=== PATIENT | male | born 1975 ===

== ENCOUNTER 2024-07-03 14:56 | Outpatient (CLI) | payer SELFPAY ==
--- NOTE | 2024-07-03 15:00 | CT_ITS ---
WS: [id number] CT CALCIUM SCORE REASON FOR VISIT: CHEST PAIN; Coronary artery disease risk assessment COMPARISON: None TECHNIQUE: Noncontrast coronary CT in combination with quantitative analysis performed on a separate workstation were used to determine CACS (Agatston score) TOTAL EXAM DOSE: 67.01 mGy.cm ECG GATING: Prospective SCAN RANGE: Pulmonary artery bifurcation to Inferior aspect of heart COMPLICATIONS: None FINDINGS: Technical Quality/Examination Quality: Good Limitation: None OVERALL SCORES Total calcium score: 5 Total volume score: 9 mm3 Percentile: 50th-75th% ARTERY SCORES Left main coronary artery: 5 Left anterior descending artery: 0 Left circumflex artery: 0 Right coronary artery: 0 OTHER FINDINGS: Mediastinum: Normal. Thoracic aorta: Normal. Lungs: Normal. Upper Abdomen: Normal. MINIMAL: 1-10 MILD: 11-100 MODERATE: 101-400 SEVERE:>400 CT/CT heart w calcium score 39442 IMPRESSION: 1. Total calcium score of 5. Patient between the 50th and 75th percentile for males between the age of 45 and 49. 2. Mildly increased risk for coronary event. Moderately intensity statin thera py recommended. GRADING OF CORONARY ARTERY DISEASE (BASED ON TOTAL CALCIUM SCORE) NO EVIDENCE OF CAD: 0 calcium score
== END 2024-07-03 14:57 | disposition home or self-care (01) ==
LOC: RAD 14:58
PROVIDERS: PCP Family Medicine; Visit Provider Family Medicine
DX: R07.9 Chest pain, unspecified (principal)
CPT/HCPCS: 75571